=== PATIENT | female | born 1980 | race Caucasian/White ===

== ENCOUNTER 2023-11-15 18:16 | Emergency (ER) | payer OTHER, SELFPAY ==
[2023-11-15 18:17] VITALS: BP 132/76
--- NOTE | 2023-11-15 19:10 | ED.GENMED ---
History of Present Illness
General
Chief Complaint: Oral/Mouth Problem
Source: patient
Time Seen by Provider: 11/15/23 18:25
Travel History
Have you had any contact with someone who has COVID-19?: No
Do you have any symptoms of coronavirus? Fever > 100 degrees, chills, cough, shortness of breath, sore throat, loss of taste or smell, muscle aches, or headache?: No
History of Present Illness
History of Present Illness:
43-year-old female with no significant past medical history presented emergency department for evaluation of left upper posterior molar pain that started a few days ago. Patient contacted her dentist but was unable to get an appointment until
Sunday. She noted continued pain despite [id number] remedies without much relief. She denies any fevers, chills, rigors, nausea or vomiting. No other concerns at this time.
Past History
Past History
ED Past Medical History: None
ED Past Surgical History: Gynecological
Social History
Tobacco: Non-smoker
Alcohol: Occasional
Drug: None
Personal: Single
Living: with family
Review of Systems
Review of Systems
All Other Systems: ROS reviewed and negative except as documented in HPI and ROS
Phy Exam
Physical Exam
Physical Exam:
GENERAL: Alert , in no apparent distress
EYE: conjunctiva clear
Head: Normocephalic atraumatic
NECK: Supple,
ENT: mmm. Gingival irritation to the left upper posterior molar. No obvious abscesses or masses, no dental fractures. Tolerating secretions. Overall fair dentition
LUNGS: no acute respiratory distress
NEUROLOGICAL: Alert and oriented
SKIN: Warm and dry, skin intact.
MUSCULOSKELETAL: well perfused.
PSYCH: Normal and appropriate interaction.
Scores
Heart Failure Risk
Heart Failure Risk Score: Not Applicable
Heart Score for Chest Pain Patients
STEMI patient?: Not applicable
Withdrawal Assessment of Alcohol
Withdrawal Assessment Completed?: Not applicable
Course
Vital Signs
Initial and Last Documented VS:
Initial Vital Signs
Temp Pulse Resp BP Pulse Ox
98.1 F 76 18 132/76 98
11/15/23 18:17 11/15/23 18:17 11/15/23 18:17 11/15/23 18:17 11/15/23 18:17
Last Documented Vital Signs
Temp Pulse Resp BP Pulse Ox
98.1 F 76 18 132/76 98
11/15/23 18:17 11/15/23 18:17 11/15/23 18:17 11/15/23 18:17 11/15/23 18:17
MDM/Problems Addressed
Differential Diagnosis Includes:
Dental abscess, dental caries, dental fracture, cracked tooth
MDM/Problems Addressed:
43-year-old female presenting emergency department for evaluation of left upper posterior molar pain. No obvious dental infections however there could be anything underlying. Will treat with Tylenol with codeine, naproxen and penicillin VK.
Again patient does have an appointment already scheduled with her dentist this coming Sunday. Aware of return precautions to ER but otherwise stable for discharge home.
*Pulse Oximetry
Patient hypoxic: no
*Critical Care Note
Total Time (30-74mins, 75-104mins- exclusive of procedures): Not Applicable
ED Attending Note
-
Portions of this chart may have been created with voice recognition software.� Occasional wrong word or��sound alike� substitutions may have occurred due to the inherent limitations of voice recognition software.
Discharge Plan
Departure
Patient Disposition: Home (Routine Discharge)
Date of Disposition: 11/15/23
Time of Disposition: 19:11
Patient with high blood pressure during this ER visit?: No
Discharge Problem:
Pain, dental
Instructions: Dental Pain (DC)
Prescriptions:
New
acetaminophen-codeine 300-30 mg Tablet
1 tab PO Q4HPRN PRN (Reason: pain) Qty: 7 0RF
naproxen 500 mg tablet
500 mg PO BID PRN (Reason: Pain) Qty: 20 0RF
penicillin V potassium 500 mg tablet
500 mg PO TID 7 Days Qty: 21 0RF
No Action
diazepam 5 MG tablet
5 mg PO TIDPRN PRN (Reason: muscle spasm) Qty: 20 0RF
penicillin V potassium 500 MG tablet
500 mg PO Q6 Qty: 40 0RF
hydrocodone-acetaminophen [Vicodin] 1 EACH tablet
1 tab PO Q6HPRN PRN (Reason: dental pain) Qty: 8 0RF
penicillin V potassium 500 MG tablet
500 mg PO QID Qty: 40 0RF
penicillin V potassium 500 MG tablet
500 mg PO QID Qty: 40 0RF
penicillin V potassium 500 mg tablet
500 mg PO TID Qty: 21 0RF
oxycodone-acetaminophen [Percocet] 5-325 mg Tablet
1 tab PO Q6HPRN PRN (Reason: pain) Qty: 8 0RF
Referrals:
NONE,* [Family Provider] -
Interventions
Interventions:
*Risk Screen - Suicide Last Done: 11/15/23 18:17
*General Assessment Last Done: 11/15/23 18:17
*Neglect/Abuse Screening Last Done: 11/15/23 18:17
ED- Fall Risk Assessment Last Done: 11/15/23 18:34
*ED COVID-19 Vaccine History Last Done: 11/15/23 18:17
== END 2023-11-15 19:25 | disposition home or self-care (01) ==
LOC: EMR 18:16
PROVIDERS: EMERGENCY PHYSICIAN Emergency Medicine
DX: K08.89 Other specified disorders of teeth and supporting structures (principal)
CPT/HCPCS: 99282

== ENCOUNTER 2024-06-19 18:23 | Emergency (ER) | payer OTHER, SELFPAY ==
[2024-06-19 18:38] VITALS: BP 137/95
[2024-06-19] MEDS: PEN VK 500 MG PO (19:10)
--- NOTE | 2024-06-19 20:25 | ED.GENMED ---
History of Present Illness
General
Chief Complaint: Oral/Mouth Problem
Source: patient
Exam Limitations: none
Time Seen by Provider: 06/19/24 18:52
Nursing documentation reviewed up to this point in time: agreed with
History of Present Illness
History of Present Illness:
Patient to ED with complaint of pain to left upper molar x 2 days. State she called her dentist today but can not be seen until Sunday. Brought self to eD for eval. No facial swelling. No difficulty breathing or swallowing.
Past History
Past History
ED Past Medical History: None
ED Past Surgical History: Gynecological
Social History
Tobacco: Non-smoker
Alcohol: Occasional
Drug: None
Personal: Single
Living: with family
Review of Systems
Review of Systems
Allergies reviewed?: Yes
All Other Systems: ROS reviewed and negative except as documented in HPI and ROS
Constitutional: Reports no symptoms
EENT: Reports other (left upper molar pain)
Respiratory: Reports no symptoms
Cardiac: Reports no symptoms
ABD/GI: Reports no symptoms
Musculoskeletal: Reports no symptoms
Skin: Reports no symptoms
Neurological: Reports no symptoms
Psychiatric: Reports no symptoms
Phy Exam
General Physical Exam
General Presentation: well appearing and no apparent distress
General age: appears stated age
General Skin: warm and dry
General Habitus: normal
ENT Exam
ENT Exam: EOMI, pharynx normal, swallowing well and other (Pain to left upper molar. No evidence of abscess. No obvious decay. )
Musculoskeletal Exam
Musculoskeletal Exam: full ROM
Skin Exam
Skin Exam: normal color, warm/dry and no rash
Psychiatric Exam
Psychiatric Exam: normal mood/affect
Course
Orders/Labs/Results
Orders:
Orders
06/19/24 18:53
Penicillin V Potassium [Pen Vk] 500 mg PO NOW STA
Vital Signs
Initial and Last Documented VS:
Initial Vital Signs
Temp Pulse Resp BP Pulse Ox
98.0 F 95 16 137/95 98
06/19/24 18:38 06/19/24 18:38 06/19/24 18:38 06/19/24 18:38 06/19/24 18:38
Last Documented Vital Signs
Temp Pulse Resp BP Pulse Ox
98.0 F 95 16 137/95 98
06/19/24 18:38 06/19/24 18:38 06/19/24 18:38 06/19/24 18:38 06/19/24 18:38
*Critical Care Note
Total Time (30-74mins, 75-104mins- exclusive of procedures): Not Applicable
Update Note
Update Note:
Pen VK started in dept. SHe is discharged home and will follow up with dentist on Sunday as scheduled
ED Attending Note
-
Portions of this chart may have been created with voice recognition software.� Occasional wrong word or��sound alike� substitutions may have occurred due to the inherent limitations of voice recognition software.
Discharge Plan
Departure
Patient Disposition: Home (Routine Discharge)
Date of Disposition: 06/19/24
Time of Disposition: 18:54
Patient with high blood pressure during this ER visit?: No
Condition: Good
Covid-19: Not Applicable
Discharge Problem:
Pain, dental
Instructions: Dental Pain (DC)
Prescriptions:
New
penicillin V potassium 500 mg tablet
500 mg PO QID Qty: 28 0RF
No Action
diazepam 5 MG tablet
5 mg PO TIDPRN PRN (Reason: muscle spasm) Qty: 20 0RF
penicillin V potassium 500 MG tablet
500 mg PO Q6 Qty: 40 0RF
hydrocodone-acetaminophen [Vicodin] 1 EACH tablet
1 tab PO Q6HPRN PRN (Reason: dental pain) Qty: 8 0RF
penicillin V potassium 500 MG tablet
500 mg PO QID Qty: 40 0RF
penicillin V potassium 500 MG tablet
500 mg PO QID Qty: 40 0RF
penicillin V potassium 500 mg tablet
500 mg PO TID Qty: 21 0RF
oxycodone-acetaminophen [Percocet] 5-325 mg Tablet
1 tab PO Q6HPRN PRN (Reason: pain) Qty: 8 0RF
acetaminophen-codeine 300-30 mg Tablet
1 tab PO Q4HPRN PRN (Reason: pain) Qty: 7 0RF
naproxen 500 mg tablet
500 mg PO BID PRN (Reason: Pain) Qty: 20 0RF
penicillin V potassium 500 mg tablet
500 mg PO TID 7 Days Qty: 21 0RF
Activity Restrictions/Additional Instructions:
Follow up with your dentist on Sunday as sheduled.
Interventions
Interventions:
*Risk Screen - Suicide Last Done: 06/19/24 19:15
*General Assessment Last Done: 06/19/24 19:15
*Neglect/Abuse Screening Last Done: 06/19/24 19:15
*ED COVID-19 Vaccine History Last Done: 06/19/24 19:15
*Nursing Disposition Last Done: 06/19/24 19:15
Discharge Date and Time
Discharge Date/Time: 06/19/24 19:16
Print Language: PERSIAN
== END 2024-06-19 19:16 | disposition home or self-care (01) ==
LOC: EMR 18:23
PROVIDERS: EMERGENCY PHYSICIAN Emergency Medicine
DX: K08.89 Other specified disorders of teeth and supporting structures (principal)
CPT/HCPCS: 99283